=== PATIENT | female | born 1985 | race Caucasian/White ===

== ENCOUNTER 2018-07-05 12:44 | Emergency (ER) | payer OTHER ==
[~2018-07-05] VITALS: Ht 154.9 cm; Wt 70.3 kg
== END 2018-07-05 16:48 | disposition home or self-care (01) ==
LOC: ER 12:44
DX: O23.591 Infection of other part of genital tract in pregnancy, first trimester (principal); O26.891 Other specified pregnancy related conditions, first trimester; N89.8 Other specified noninflammatory disorders of vagina; M54.89 Other dorsalgia; Z34.81 Encounter for supervision of other normal pregnancy, first trimester